=== PATIENT | female | born 1950 | race Caucasian/White ===

== ENCOUNTER → 2016-08-11 | Outpatient (CLI) | payer OTHER ==
[~2016-08-11] MED LIST: ATV5X PO; CITA10TA8 PO; LEVO100T7 PO; MAGN400T6 PO; PRLSR20 PO
[2016-08-11 12:38] LABS: BASO % 0.2 %; BASO ABS # 0.01 K/uL (0-0.2); COMPLETE YES; EOS % 4.9 %; HEMATOCRIT 37.5 % (37-47); IG% 0.2 %; LYMPH % 35.5 %; LYMPH ABS # 1.87 K/uL (1.2-3.4); MEAN CELL VOLUME 96.6 fL (80-100); MEAN CORPUSCULAR HEMOGLOBIN 32.5 pg (25-34); MEAN CORPUSCULAR HGB CONC 33.6 g/dl (32-36); MEAN PLATELET VOLUME 11.8 fL (7.4-10.4); MONO % 8.5 %; NEUT % 50.7 %; PLATELET COUNT 175 K/uL (130-400); RED BLOOD COUNT 3.88 M/uL (4.2-5.4); WHITE BLOOD COUNT 5.27 K/uL (4.8-10.8)
[2016-08-11 12:59] LABS: ESTIMATED AVERAGE GLUCOSE 111 mg/dl; HA1C FLAG Normal (Normal)
[2016-08-11 14:03] LABS: ALT/SGPT 19 U/L (12-78); AST/SGOT 16 U/L (15-37); BLOOD UREA NITROGEN 19 mg/dl (7-18); BUN/CREATININE RATIO 26.7 (10-20); CALCIUM 8.7 mg/dl (8.5-10.1); CARBON DIOXIDE 31 mmol/L (21-32); CHLORIDE 108 mmol/L (98-107); CHOLESTEROL 163 mg/dl (0-200); GLUCOSE 84 mg/dl (70-99); MAGNESIUM 2.1 mg/dl (1.8-2.4); SODIUM 143 mmol/L (136-145)
[2016-08-11 14:11] LABS: ALB/GLOB RATIO 1.2 (0.9-2); ALKALINE PHOSPHATASE 60 U/L (45-117); CHOLESTEROL/HDL RATIO 2.3; FERRITIN 317.7 ng/ml (8.0-388.0); HDL CHOLESTEROL 70 mg/dl; LDL CHOLESTEROL CALCULATED 81 mg/dl; TRIGLYCERIDES 62 mg/dl (0-150); VERY LOW DENSITY LIPOPROT CALC 12 mg/dl
== END | disposition home or self-care (01) ==
LOC: C.LABPBG 08:54
PROVIDERS: ATTEND Nurse Practitioner Family
DX: J45.909 Unspecified asthma, uncomplicated (principal); E03.9 Hypothyroidism, unspecified; Z13.220 Encounter for screening for lipoid disorders; K21.0 Gastro-esophageal reflux disease with esophagitis; R73.9 Hyperglycemia, unspecified

== ENCOUNTER 2021-11-26 10:11 | Observation (INO) ==
--- NOTE | 2021-11-06 16:27 | PAT Medication Instructions ---
Medication Instructions Date of Service November 06, 2021 Home Medications diphenhydramine HCl 25 mg tablet 25 mg PO HS PRN fexofenadine 180 mg tablet 180 mg PO UD PRN allergies albuterol sulfate 90 mcg/actuation aerosol inhaler 1 inh inhalation UD PRN asthma citalopram 20 mg tablet 20 mg PO QPM ipratropium 0.5 mg-albuterol 3 mg (2.5 mg base)/3 mL nebulization soln 3 ml inhalation UD PRN asthma levothyroxine 100 mcg tablet 100 mcg PO QAM montelukast 10 mg tablet (Singulair) 10 mg PO QPM omeprazole 20 mg capsule,delayed release 20 mg PO QAM fluticasone furoate 100 mcg-vilanterol 25 mcg/dose inhalation powder (Breo Ellipta) 1 inh inhalation QAM magnesium oxide 400 mg PO HS DO NOT take the morning of surgery fexofenadine 180 mg tablet 180 mg PO UD PRN allergies Take morning of surgery With a small sip of water, OTHERWISE NOTHING TO EAT OR DRINK AFTER MIDNIGHT: albuterol sulfate 90 mcg/actuation aerosol inhaler 1 inh inhalation UD PRN asthma (use if needed; please bring rescue inhaler with you to hospital day of surgery if possible) ipratropium 0.5 mg-albuterol 3 mg (2.5 mg base)/3 mL nebulization soln 3 ml inhalation UD PRN asthma (if needed) levothyroxine 100 mcg tablet 100 mcg PO QAM omeprazole 20 mg capsule,delayed release 20 mg PO QAM fluticasone furoate 100 mcg-vilanterol 25 mcg/dose inhalation powder (Breo Ellipta) 1 inh inhalation QAM Take evening before surgery diphenhydramine HCl 25 mg tablet 25 mg PO HS PRN (if needed) fexofenadine 180 mg tablet 180 mg PO UD PRN allergies (if needed) albuterol sulfate 90 mcg/actuation aerosol inhaler 1 inh inhalation UD PRN asthma (if needed) citalopram 20 mg tablet 20 mg PO QPM ipratropium 0.5 mg-albuterol 3 mg (2.5 mg base)/3 mL nebulization soln 3 ml inhalation UD PRN asthma (if needed) montelukast 10 mg tablet (Singulair) 10 mg PO QPM magnesium oxide 400 mg PO HS Other Notes If you have any questions please call us at [phone] or [phone] or [phone] or [phone]
--- NOTE | 2021-11-07 13:00 | Anesthesiology Consultation ---
Date of Service November 07, 2021 Assessment & Plan (1) Encounter for pre-operative examination: - COVID screening: Per assessment on 11/06: No known COVID-19 positive contacts or current COVID-19 related symptoms. Travel screen negative. Patient vaccinated. At surgeon discretion if preop Covid testing being done. - Outpatient joint assessment: If surgeon requests review for outpatient joint pathway, patient is acceptable candidate for outpatient joint program from anesthesia standpoint pending surgeon's office assessment of pt motivation/support/completion of same day joint program preop requirements. Chart Review Chart Review: Acceptable Risk for Surgery and Patient seen in Pre Admission Testing Teaching & Discussion Pre-Anesthesia Teaching/Discussion Notes: Instructed NPO after midnight before surgery,except medications with 15 cc of water. Medication instructions provided according to the PAT guidelines. History Surgery Operation Date: 11/26/21 12:55 Proposed Procedures p Left Total Shoulder Arthroplasty - Dae Ding MD Height/Weight Height: 5 ft 6 in Weight: 95.8 kg Allergies Allergy/AdvReac Type Severity Reaction Status Date / Time adhesive tape Allergy Intermediate Rash Verified 11/06/21 08:49 No Known Drug Allergies Allergy Verified 11/06/21 08:49 Medications Home Medications Medication Instructions Recorded Confirmed Last Taken diphenhydramine HCl 25 mg tablet 25 mg PO HS PRN Sleep 02/10/19 11/06/21 Unknown fexofenadine 180 mg tablet 180 mg PO UD PRN allergies #30 tabs 02/10/19 11/06/21 Unknown albuterol sulfate 90 mcg/actuation 1 inh inhalation UD PRN asthma 05/08/21 11/06/21 Unknown aerosol inhaler citalopram 20 mg tablet 20 mg PO QPM 05/08/21 11/06/21 Unknown ipratropium 0.5 mg-albuterol 3 mg 3 ml inhalation UD PRN asthma 05/08/21 11/06/21 Unknown (2.5 mg base)/3 mL nebulization soln levothyroxine 100 mcg tablet 100 mcg PO QAM 05/08/21 11/06/21 Unknown montelukast 10 mg tablet 10 mg PO QPM 05/08/21 11/06/21 Unknown (Singulair) omeprazole 20 mg capsule,delayed 20 mg PO QAM 05/08/21 11/06/21 Unknown release fluticasone furoate 100 1 inh inhalation QAM 11/06/21 11/06/21 Unknown mcg-vilanterol 25 mcg/dose inhalation powder (Breo Ellipta) magnesium oxide 400 mg PO HS 11/06/21 11/06/21 Unknown Past Medical History Medical History Anxiety Asthma Well controlled GERD (gastroesophageal reflux disease) Controlled Hereditary hemochromatosis Follows with Dr. 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 and will be monitoring labs closely pre/post-operatively to determine phlebotomy timing perioperatively per pt Hypothyroidism Memory loss Previous neuro evaluation- Memory loss age-related, advised PRN f/u Obesity Exercise / Class Metabolic Activity II 4-5 Yardwork/Stairs/Walk up hill (one FS (no CP, no SOB)) Past Family History Family History Daughter FHx: ovarian cancer, Onset Age: 43 surgery and treatments - currently in remission Denies family history of Ovarian cancer Prostate cancer Myocardial infarction Breast cancer Colorectal cancer Past Surgical History Surgical History History of appendectomy History of cholecystectomy History of colonoscopy History of endoscopy History of eye surgery Right torn retina History of tubal ligation Hx of bilateral breast reduction surgery Past Anesthesia History No Hx of Anesthesia Complications and No Family Hx of Anesthesia Complications History of PONV No Hx of PONV and No Hx of Motion Sickness Social History Smoking Status: Former smoker tobacco type: cigarettes Do You Dip or Chew Tobacco: No Smoking End Date: Quit 2009 Hx Alcohol Use: Yes Alcohol type: wine alcohol intake frequency: holidays/special occasions only Hx Substance Use: No substance use type: does not use Substance Use Type Other:: Many years ago Last Used Substance: Unknown Review of Systems Patient denies chest pain, shortness of breath, dyspnea on exertion, fever, chills, cough, wheezing, palpitations. Physical Exam Vital Signs VITALS BP 143/78 P 66 TEMP 98.3 SP02 98%RA RESP 18 PHYSICAL Full cervical extension range of motion. Full TMJ range of motion. TMD 3 finger breaths Mallampati Score 2 Dentition: + missing (sides/molars) Lungs: clear throughout to auscultation Cardiac: regular rate and rhythm, no murmurs noted Spine: normal Carotid arteries: negative bruit Extremities: no edema Lab Results Anesthesia Preop Results Results Anesthesia Widget: WBC 5.77 K/ul (4.8-10.8) 11/07/21 Hgb 10.8 g/dl (12.0-16.0) L 11/07/21 Hct 32.7 % (34.1-44.9) L 11/07/21 Plt 196 K/uL (130-400) 11/07/21 Na 141 mmol/L (136-145) 11/07/21 K 4.1 mmol/L (3.5-5.1) 11/07/21 Cl 108 mmol/L (98-107) H 11/07/21 CO2 26 mmol/L (21-32) 11/07/21 BUN 16 mg/dl (6-23) 11/07/21 Creat 0.78 mg/dl (0.6-1.2) 11/07/21 Glucose Level 89 mg/dl (70-99(Fasting)) 11/07/21 PT 10.5 Seconds (9.0-12.0) 11/07/21 PTT 25.6 Seconds (21.0-31.0) 11/07/21 INR 1.0 (0.9-1.1) 11/07/21 HA1c 5.1 % (4.5-5.6) 11/07/21 Urine Color Yellow 11/07/21 Urine Appearance Clear (Clear) 11/07/21 Urine pH 5.5 (4.5-7.5) 11/07/21 Urine Specific [place] 1.013 (1.000-1.030) 11/07/21 Urine Protein Negative (Negative) 11/07/21 Urine Glucose (UA) Negative (Negative) 11/07/21 Urine Ketones Negative (Negative) 11/07/21 Urine Blood 2+ (Negative) H 11/07/21 Urine Nitrite Negative (Negative) 11/07/21 Urine Bilirubin Negative (Negative) 11/07/21 Urine Urobilinogen Negative (Negative) 11/07/21 Urine Leukocyte Esterase Negative (Negative) 11/07/21 Urine WBC (Auto) 1-5 /hpf (0-5) 11/07/21 Urine RBC (Auto) 5-10 /hpf (0-4) H 11/07/21 Urine Hyaline Casts (Auto) 1-5 /lpf (0-5) 11/07/21 Urine Epithelial Cells (Auto) 20-30 /lpf (0-5) H 11/07/21 Urine Bacteria (Auto) Negative (Negative) 11/07/21 Blood Type A Positive 11/07/21 Antibody Screen NEGATIVE 11/07/21 Testing Laboratory Results Will forward preop testing to PCP/office agent for continuity of care* Electrocardiogram Date: 11/07/21 Findings: + NSR @ (62) Chest X-Ray Date: 11/07/21 FINDINGS: No pneumothorax. No pleural effusions. The heart is normal in size. The lungs are clear. Mild calcified plaque within the aortic knob again noted. Advanced degenerative changes within the left shoulder. Prior cholecystectomy. IMPRESSION: No acute process.
--- NOTE | 2021-11-25 18:08 | History & Physical Report ---
Date of Service November 25, 2021 Assessment & Plan (1) Primary osteoarthritis, left shoulder: Plan: Treatment options discussed with patient. She has failed conservative measures and would like to proceed with surgical intervention Risks, benefits and alternatives to surgery including but not limited to infection, DVT, pain, stiffness, need for revision surgery, damage to blood vessels, damage to nerves, PE, , were discussed with the patient and they wish to proceed. Plan on left total shoulder arthroplasty scheduled for 11/26/[address] Ding. All questions answered. She will follow up post op. History of Present Illness Chief Complaint: Left shoulder pain Primary Care Provider: NO PCP 71yo female with PMHx significant for hemochromatosis, asthma, hypothyroid who presents with progressive left shoulder pain. Pain interfering with her daily activity. She has failed conservative measures and would like to proceed with surgical intervention. Patient denies headaches, sweats, fevers, chills, double vision, blurred vision, cough, sore throat, dysphagia, chest pain, sob, wheezing, n/v/d/c, numbness, tingling, fatigue, urinary symptoms, mood disorders. ROS positive for left shoulder pain and stiffness. Allergies Allergy/AdvReac Type Severity Reaction Status Date / Time adhesive tape Allergy Intermediate Rash Verified 11/06/21 08:49 No Known Drug Allergies Allergy Verified 11/06/21 08:49 Home Medications Medication Instructions Recorded Confirmed Type diphenhydramine HCl 25 mg tablet 25 mg PO HS PRN Sleep 02/10/19 11/06/21 History fexofenadine 180 mg tablet 180 mg PO UD PRN allergies #30 tabs 02/10/19 11/06/21 History albuterol sulfate 90 mcg/actuation 1 inh inhalation UD PRN asthma 05/08/21 11/06/21 History aerosol inhaler citalopram 20 mg tablet 20 mg PO QPM 05/08/21 11/06/21 History ipratropium 0.5 mg-albuterol 3 mg 3 ml inhalation UD PRN asthma 05/08/21 11/06/21 History (2.5 mg base)/3 mL nebulization soln levothyroxine 100 mcg tablet 100 mcg PO QAM 05/08/21 11/06/21 History montelukast 10 mg tablet 10 mg PO QPM 05/08/21 11/06/21 History (Singulair) omeprazole 20 mg capsule,delayed 20 mg PO QAM 05/08/21 11/06/21 History release fluticasone furoate 100 1 inh inhalation QAM 11/06/21 11/06/21 History mcg-vilanterol 25 mcg/dose inhalation powder (Breo Ellipta) magnesium oxide 400 mg PO HS 11/06/21 11/06/21 History Past Med/Surg History Medical History Anxiety Asthma Well controlled GERD (gastroesophageal reflux disease) Controlled Hereditary hemochromatosis Follows with Dr. Tavares ([facility]), received phlebotomy typically every other week Division Superintendent aware of upcoming surgery and will be monitoring labs closely pre/post-operatively to determine phlebotomy timing perioperatively per pt Hypothyroidism Memory loss Previous neuro evaluation- Memory loss age-related, advised PRN f/u Obesity Surgical History History of appendectomy History of cholecystectomy History of colonoscopy History of endoscopy History of eye surgery Right torn retina History of tubal ligation Hx of bilateral breast reduction surgery Family History Daughter FHx: ovarian cancer, Onset Age: 43 surgery and treatments - currently in remission Denies family history of Ovarian cancer Prostate cancer Myocardial infarction Breast cancer Colorectal cancer Social History Smoking Status: Former smoker Age Started Using Tobacco: 17; Age Quit Using Tobacco: 53; Second Hand Exposure: No; Hx Alcohol Use: Yes Alcohol type: wine Hx Substance Use: No Preferred Language: Hong Konger Communication Ability: Effective Reversing Mill Roller Required: No Beliefs That Will Affect Care: None marital status: Current Living Situation: Other 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 Feels Safe at Home: Yes Childhood Exposure to Second-Hand Smoke: Yes Dental Care, Regularly: Yes Physical Activity Frequency: 1-2 Times per Week Seatbelt Use: always Sunscreen Use: Yes Assistive Devices: None Review of Systems All systems reviewed & are unremarkable except as noted in HPI & below Physical Exam Constitutional: well developed and well nourished; no acute distress Eyes: PERRL, conjunctivae normal, anicteric sclerae ENMT: external ear and nose normal, oropharynx normal Neck: trachea midline, no thyromegaly Respiratory: normal respiratory effort, lungs clear to auscultation Cardiovascular: RRR, no murmur, no edema Musculoskeletal: Left shoulder: crepitation with ROM. Diffuse tenderness. Pos itive impingement signs, positive cross body and lift off. Abduction to 90 degrees, FF to 90 degrees, ER to 30 degrees. Pain with strength testing. Skin: no rashes, warm and dry Neurologic: patellar DTR's 2+ bilat, sensation intact Psychiatric: A+Ox3, euthymic affect Results & Data ([facility]) Diagnostic Findings Left shoulder radiographs demonstrate endstage osteoarthritis GH joint with joint space narrowing and periarticular osteophyte formation. MRI demonstrates no full thickness rotator cuff tearing.
[~2021-11-26 10:11] MED LIST changes: +ACETAMINOPHEN 500 MG TAB PO SCH; -ATV5X PO; +BUPIVACAINE 0.5 % 5 MG/1 ML PF 10ML VIAL ONE; -CITA10TA8 PO; +CeleBREX 200 MG CAP PO SCH; +FAMOTIDINE 20 MG TAB PO SCH; +GABAPENTIN 300 MG CAP PO SCH; -LEVO100T7 PO; +LR 15ML/HR IV SCH; -MAGN400T6 PO; +METOCLOPRAMIDE HCL 10 MG TABLET PO SCH; -PRLSR20 PO; +TRANEXAMIC ACID 1,000 MG **IV Intra-op IV SCH; +TRANEXAMIC ACID 1,000 MG **IV Pre-op IV SCH; +ceFAZolin 2000MG 2,000 MG/15 ML SYR IV SCH; +dexAMETHasone 4 MG TAB PO SCH
[2021-11-26] MEDS ORDERED: ePHEDrine sulfate 50 MG/ML AMP IV PRN (13:17)
[2021-11-26] MEDS ORDERED: ATROPINE SULFATE 0.1 MG/ML 10ML SYR IV PRN (13:17)
[2021-11-26] MEDS ORDERED: LABETALOL HCL IV 5 MG/ML 20ML IV PRN (13:17)
[2021-11-26] MEDS ORDERED: fentaNYL citrate 100 MCG/2 ML VIAL IV PRN (13:17)
[2021-11-26] MEDS ORDERED: PROMETHAZINE HCL 12.5 MG in SODIUM CHLORIDE 0.9% 50 ML IV PRN (13:17)
[2021-11-26] MEDS ORDERED: HYDROmorphone INJ 1 MG/ML SYRINGE IV PRN (13:17)
[2021-11-26] MEDS ORDERED: FLUMAZENIL 0.1 MG/1 ML 10 ML VIAL IV PRN (13:17)
[2021-11-26] MEDS ORDERED: NALOXONE HCL 0.4 MG/1 ML VIAL/CARP IV PRN ×2 (13:17→19:36)
[2021-11-26] MEDS ORDERED: ONDANSETRON INJ 2 MG/ML 2 ML VIAL IV PRN ×2 (13:17→19:36)
[2021-11-26] MEDS ORDERED: DEXAMETHASONE SOD INJ 4 MG/ML VIAL ONE (14:49)
[2021-11-26] MEDS ORDERED: ONDANSETRON INJ 2 MG/ML 2 ML VIAL ONE (14:49)
[2021-11-26] MEDS ORDERED: NEOSTIGMINE METHYLSULFATE 1 MG/ML 10ML VIAL ONE (14:49)
[2021-11-26] MEDS ORDERED: PROPOFOL IV EMULSION 10 MG/ML 20 ML VIAL IV ONE (14:49)
[2021-11-26] MEDS ORDERED: GLYCOPYRROLATE 0.2 MG/ML VIAL ONE (14:49)
[2021-11-26] MEDS ORDERED: fentaNYL citrate 100 MCG/2 ML VIAL ONE (14:50)
[2021-11-26] MEDS ORDERED: MIDAZOLAM HCL 1 MG/ML 2ML VIAL ONE (14:50)
--- NOTE | 2021-11-26 15:24 | History & Physical Bridge Note ---
Date of Service November 26, 2021 History & Physical Bridge Note I have examined the patient, reviewed the History & Physical and in the interval since the performance of the History & Physical I have noted the following changes of clinical significance: no changes noted
[2021-11-26] MEDS ORDERED: EpINEphrine HCL INJ 1 MG/ML 1ML SYRINGE ONE (15:32)
[2021-11-26] MEDS ORDERED: LIDOCAINE 2% MPF LOCAL 5 ML VIAL INFIL ONE (16:48)
[2021-11-26] MEDS ORDERED: ROCURONIUM BROMIDE 10 MG/ML 5 ML VIAL IV ONE ×3 (16:48→17:49)
--- NOTE | 2021-11-26 18:38 | Operative Report ---
Post Operative Report Pre & Post Diagnosis Operation Date: 11/26/21 12:40 Pre-Op Diagnosis: Left Shoulder end-stage glenohumeral osteoarthritis, severe biceps tenosynovitis, large anterior bursal fluid collection underlying conjoined tendon and subcoracoid region. Post-Op Diagnosis: Left Shoulder end-stage glenohumeral osteoarthritis, biceps tendinopathy with biceps tenosynovitis severe, large bursal fluid collection underlying conjoined tendon and subcoracoid region. I identified the patient and participated in the time-out.: Yes Procedure Operation Date: 11/26/21 12:40 Actual Procedures p Left Total Shoulder Arthroplasty(Left), biceps tenosynovectomy and biceps tenodesis, resection subcoracoid and sub conjoined tendon bursa.Dae Ding MD Surgeon Dae Ding MD Netsuite Developer Esau PERDOMO Estimated Blood Loss 125 Findings Consistent with Post-Op Diagnosis Specimens Humeral head cut Drains 2 Hemovac Anesthesia Type General Regional Complications None Disposition Disposition: Recovery Room Indications 71-year-old female with chronic left shoulder pain failed conservative management. Radiographs demonstrate she has end-stage glenohumeral osteoarthritis [id number] glenohumeral joint. MRI demonstrates a large anterior fluid collection overlying the subscapularis tendon extending under lying the conjoined tendon and subcoracoid region. Also extensive biceps tenosynovitis. Description of Procedure The patient was taken to the operating room and anesthetized under a general and regional block anesthesia. A towel roll was placed under the medial border of the scapula of the left shoulder. The patient's head was placed on a foam headrest and protective eyewear was placed and the extremities were well padded. The arm was draped free in order to manipulate the shoulder as necessary. The shoulder exam demonstrated 100 degrees flexion 90 degrees abduction 30 degrees e xternal rotation with [id number] crepitation. The shoulder was sterilely prepped and draped in the usual sterile fashion. An anterior deltopectoral approach was performed. A longitudinal incision was made in the interval. The skin was incised sharply and subcutaneous tissues dissected down to the fascia. The cephalic vein was identified and retracted laterally with the deltoid. Any crossing veins were tied off with silk ties and divided. The clavipectoral fascia was divided at the lateral margin of the conjoined tendon and divided up to the level of the coracoacromial ligament which was preserved. The upper 1 cm of the pectoralis was released for inferior exposure. The biceps tendon findings demonstrated very marked biceps sepsis tenosynovitis along the entire bicipital groove and extending below the pectoralis tendon attachment with dark discoloration of fluid likely related to old bleeding. There was a similar very large bursal type sac over the anterior medial subscapularis tendon which extended into the subcoracoid region and underlying the conjoined tendon. The subscapularis tendon was completely intact as well as the remainder of the rotator cuff. The circumflex vessels were identified and tied off with silk ties and divided laterally. The upper centimeter of the pectoralis was released for inferior exposure. The fibers and subscapularis were split longitudinally at the level of the circumflex vessels down to the capsule and then reflected off the inferior capsule using a Kitner elevator. The axillary nerve was identified with a tug test and protected with a blunt Eric retractor. The rotator interval was opened up and extended down to the glenoid. The biceps tendon was identified and tenodesed to the pectoralis tendon with [id number] #2 Fib erWire sutures in the proximal biceps was resected. The subscapularis tendon was taken down with a trans-tendinous incision leaving a cuff of tissue for repair on the lesser tuberosity. The incision was carried down to the tendon and the capsule and a #1 Vicryl suture was placed into the free end of the subscapularis tendon. The capsule was subperiosteally dissected off the inferior neck of the humerus exposing the humeral osteophytes which demonstrated moderately large inferior humeral osteophytes.. The osteophytes were excised with an artist chisel and a rongeur. The capsular release along the inferior neck of the humerus was completed. The humerus was then retracted posterior to the glenoid with a Fukuda retractor. The remainder of the biceps tendon and labrum was resected. The glenoid findings demonstrated type a central wear with exposed bone with multiple cysts on the surface extending into the subchondral subcortical region. The cysts are relatively superficial 2 to 3 mm deep. I did an anterior inferior and posterior inferior release with electrocautery on bone and a Madrid elevator with the axillary nerve continuing to be protected with the blunt Hohmann retractor inferiorly. When the releases were completed and the humeral head was exposed with some extension and external rotation and in anatomic head cut was made using the oscillating saw. The Tornier total shoulder arthroplasty was used including the Cortiloc pegged glenoid component and the ascend flex stem. Attention was first taken to preparation of the humeral shaft. A centralizing awl was used followed by broaches up to the appropriate templated size. The trial broach size 5 standard was left in place and a cut protector was placed. The humerus was then retracted posterior to the glenoid using a Bankart retractor anteriorly and blunt Eric and posterior Tornier glenoid retractor. A central drill hole was made into the glenoid. The glenoid was sized for a size 30 radius pegged Cortiloc medium glenoid component. The glenoid was reamed and the central drill widened and the guide for the 3 peripheral peg holes was placed in the peg holes were drilled and a trial component was placed with a tight fit. All the cysts were curetted out to expose bone removing all the cyst material using a small curette. Rongeur was also used to debride the soft tissue. The glenoid was irrigated with pulsatile lavage antibiotic solution and the drill holes and cysts were dried and packed with epinephrine-soaked tampons for hemostasis. The Palacos G cement was vacuum mixed. The final component was cemented into position and held in position with pressure until the cement cured. A humeral head trial was placed. A trial reduction was performed and the shoulder was stable. The trial was removed and the humerus and canal were irrigated with antibiotic solution with bacitracin. 3 drill holes were made into the hard bone in the bicipital groove lateral to the lesser tuberosity and 3 #5 FiberWire transosseous sutures were placed for repair of the subscapularis. After further irrigation of the canal and the final components were assembled. The final components were the 48 x 18 mm hu meral head attached to the 5 A standard ascend flex PTC humeral stem. The implant was then impacted into the humerus with a tight press-fit. The humerus was reduced to the glenoid and stability verified. The subscapularis was repaired with the #5 FiberWire sutures in a Sunil-Brigido suture technique and lateral row fixation with [id number] #2 FiberWire in the soft tissue. The rotator interval was closed and maximal external rotation. The pectoralis was then closed with [id number] #2 FiberWire suture. The sutures were passed through the biceps tendon as well to reinforce the biceps tenodesis. 2 Hemovac drains were placed. The deltopectoral interval was closed with [id number] #1 Vicryl sutures. The subcutaneous tissues were closed with interrupted 2-0 Vicryl and the skin was closed with krysten and a sterile dressing was applied. The patient tolerated the procedure well. Esau PERDOMO my physician clinical laboratory assistant, participated as patient clerical assistant and was integral part in all aspects of the operative procedure. He assisted in soft tissue retraction instrument management suture management and assisted in the subcutaneous and skin closure and will participate in the postoperative care the patient. I attest to the content of the Intraoperative Record and any orders documented therein. Any exceptions are noted below.
--- NOTE | 2021-11-26 19:18 | Anesthesiology Progress Note ---
Date of Service November 26, 2021 Anesthesia Post Procedure Vital Signs Vital Signs: Temp Pulse Pulse Resp BP Pulse Ox O2 Del Method 11/26/21 19:05 75 16 147/71 H 95 Nasal Cannula 11/26/21 18:55 78 20 139/79 92 Room Air 11/26/21 18:45 75 18 110/75 97 Oxymask 11/26/21 18:38 36.7 C 88 16 137/101 H 98 Oxymask 11/26/21 10:34 36.5 C 62 18 132/83 96 Room Air O2 Flow Rate 11/26/21 19:05 2 11/26/21 18:55 11/26/21 18:45 9 11/26/21 18:38 9 11/26/21 10:34 Pain Intensity Left Shoulder: Pain Intensity: 5 Transfer of Care Handoff Completed per policy Notes Mental Status: alert / awake / arousable Patient Amnestic to Procedure: Yes Nausea / Vomiting: adequately controlled Pain: adequately controlled Airway Patency, RR, SpO2: stable & adequate BP & HR: stable & adequate Hydration State: stable & adequate Anesthetic Complications: no major complications apparent
[2021-11-26] MEDS ORDERED: oxyCODONE HCL IR 5 MG TAB (IMMEDIATE RELEASE) PO PRN (19:36)
[2021-11-26] MEDS ORDERED: HYDROmorphone INJ 0.5 MG/0.5 ML SYR IV PRN (19:36)
[2021-11-26] MEDS ORDERED: METOCLOPRAMIDE HCL INJ 5 MG/ML 2 ML VIAL IV PRN (19:36)
[2021-11-26] MEDS ORDERED: MAGNESIUM HYDROXIDE SUSP 30 ML UDC PO PRN (19:36)
[2021-11-26] MEDS ORDERED: ALBUT/IPRATROP 3MG/0.5MG NEB 3 ML VIAL INH PRN ×2 (19:36→19:52)
[2021-11-26] MEDS ORDERED: ALBUTEROL HFA 8 GM INHALER INH PRN ×2 (19:36→19:52)
[2021-11-26] MEDS ORDERED: FEXOFENADINE HCL 180 MG TAB PO PRN (19:36)
[2021-11-26] MEDS ORDERED: bisacodyL 10 MG SUPP PR PRN (19:36)
--- NOTE | 2021-11-26 19:53 | Hospitalist Consultation ---
Date of Consultation November 26, 2021 Assessment & Plan (1) S/P shoulder surgery: POD #0 from arthroplasty with hemovac in place - Pain control tiered appropriate with rescue narcan as you have - drains per primary team - VTE prophy per primary team - SCDS, ASA - ABX per primary team - Diet per primary team - PT/OT per primary team - Blood transfusions per primary team - IVF per primary team (2) GERD (gastroesophageal reflux disease): Continue PPI as you have (3) Asthma: Well controlled - continue ROSANNA as you have with ROSANNA nebs prn as you have - Continue ICS/LABA as you have - Continue Montelukast - continue Anna Marie (4) Hypothyroidism: Continue synthroid as you have (5) Hereditary hemochromatosis: Follows with [facility] in [facility] - managed with phlebotomy Plan Hospitalist will sign off at this time, please let us know if clinical course changes or further needs arise. Supervising Physician Co-Signing Physician Notes Patient seen and examined, chart reviewed, case discussed with LYNDA Gallo and I agree with the assessment and plan as above. In brief, patient is a 8-year-old female with history of asthma, GERD, hereditary hemochromatosis and hypothyroidism. She is status post left shoulder arthroplasty performed today by Dr. Ding. Surgery was well-tolerated with no immediate complications identified. Estimated blood loss = 125 mL. Patient presently awake and alert, resting comfortably. Denies pain, nausea. On physical exam she is afebrile, hemodynamically stable, resting comfortably Left arm in sling with Hemovac drain in place HEENTnormocephalic, atraumatic, pupils equal and reactant to light, moist mucous membranes Heart+ S1, S2, regular, no murmur/rub/gallops LungsCTA anteriorly, no rales/rhonchi/wheezes Abdomenpositive bowel sounds, soft, nontender, nondistended Extremitieswarm, well perfused with no clubbing, cyanosis or edema No recent labs performed. COVID test is negative Assessment/plan: 71-year-old female with history of well-controlled asthma, GERD, hereditary hemochromatosis and hypothyroidism postop day 0 from left total shoulder arthroplasty. Patient overall doing well. Management of pain, nausea, PT/OT discharge planning per primary team Resume home medicationsomeprazole, Singulair, Synthroid, ipra tropiumalbuterol, Breo Ellipta Remainder as above History of Present Illness Reason for Consultation: medical managment Requesting Physician: Dae Ding MD Attending Physician: Dae Ding MD History of Present Illness 71 YOF POD #0 from left total shoulder arthroplasty by Dr. Ding, under [place] with intubation and EBL of 125ml, she required some ephedrine during the case. Patient with medical history of: Hemochromatosis, VIT D deficiency, GERD, Hypothyroidism, Asthma, previous smoker. Patient was evaluated in her room postoperatively. She is briskly awake, pain controlled, no nausea/vomiting, all vitals with in normal range and her oxygen on 2L is being weaned down. She remains with Hemovac drain to left shoulder and arm is sling. Still with some effects of block to shoulder on board. Medications reviewed, is with rescue narcan and bowel regimen. Continue Asthma inhalers as you have with nebulizer as needed as you have. No recommendations Hospitalist service will sign off at this time, pleas let us know if clinical course changes or other needs arise. Thank you for allowing us to participate in the care of this patient. Allergies Allergy/AdvReac Type Severity Reaction Status Date / Time adhesive tape Allergy Intermediate Rash Verified 11/26/21 10:32 No Known Drug Allergies Allergy Verified 11/26/21 10:32 Home Medications Medication Instructions Recorded Confirmed Type diphenhydramine HCl 25 mg tablet 25 mg PO HS PRN Sleep 02/10/19 11/26/21 History fexofenadine 180 mg tablet 180 mg PO UD PRN allergies #30 tabs 02/10/19 11/26/21 History albuterol sulfate 90 mcg/actuation 1 inh inhalation UD PRN asthma 05/08/21 11/26/21 History aerosol inhaler citalopram 20 mg tablet 20 mg PO QPM 05/08/21 11/26/21 History ipratropium 0.5 mg-albuterol 3 mg 3 ml inhalation UD PRN asthma 05/08/21 11/26/21 History (2.5 mg base)/3 mL nebulization soln levothyroxine 100 mcg tablet 100 mcg PO QAM 05/08/21 11/26/21 History montelukast 10 mg tablet 10 mg PO QPM 05/08/21 11/26/21 History (Singulair) omeprazole 20 mg capsule,delayed 20 mg PO QAM 05/08/21 11/26/21 History release fluticasone furoate 100 1 inh inhalation QAM 11/06/21 11/26/21 History mcg-vilanterol 25 mcg/dose inhalation powder (Breo Ellipta) magnesium oxide 400 mg PO HS 11/06/21 11/26/21 History Patient History Medical History (Updated 11/26/21 @ 20:26 by LYNDA Ferreira) Anxiety Asthma Well controlled GERD (gastroesophageal reflux disease) Controlled Hereditary hemochromatosis Follows with Dr. Tavares ([facility]), received phlebotomy typically every other week Client Delivery Specialist aware of upcoming surgery and will be monitoring labs closely pre/post-operatively to determine phlebotomy timing perioperatively per pt Hypothyroidism Memory loss Previous neuro evaluation- Memory loss age-related, advised PRN f/u Obesity Surgical History (Updated 11/26/21 @ 20:26 by LYNDA Ferreira) History of appendectomy History of cholecystectomy History of colonoscopy History of endoscopy History of eye surgery Right torn retina History of tubal ligation Hx of bilateral breast reduction surgery Family History Daughter FHx: ovarian cancer, Onset Age: 43 surgery and treatments - currently in remission Denies family history of Ovarian cancer Prostate cancer Myocardial infarction Breast cancer Colorectal cancer Social History Smoking Status: Former smoker Age Started Using Tobacco: 17; Age Quit Using Tobacco: 53; Smoking End Date: Quit 2009; Second Hand Exposure: No; Do You Dip or Chew Tobacco: No; Tobacco Cessation Education Requested by Patient: No Hx Alcohol Use: Yes Alcohol type: wine Hx Substance Use: No Preferred Language: Italian Communication Ability: Effective Systems Consultant Required: No Beliefs That Will Affect Care: None marital status: Current Living Situation: Other Current Living Situation Comment: lives with room mate current occupational status: retired Other Information That Helps Us Care for You: No Feels Safe at Home: Yes Safety Concerns: Feels Safe At This Time Childhood Exposure to Second-Hand Smoke: Yes Dental Care, Regularly: Yes Physical Activity Frequency: 1-2 Times per Week Seatbelt Use: always Sunscreen Use: Yes Assistive Devices: None Review of Systems Review of Systems: REVIEW OF SYSTEMS: Constitutional: No fever, sweats or chills Eyes: No diplopia, no worsening or blurred vision ENT: normal hearing, no trouble swallowing Respiratory: (+) asthma, previous smoker, No cough, sputum, dyspnea at rest or on exertion Cardiovascular: No chest pain, tightness or palpitations Abdomen: No pain, nausea, vomiting, diarrhea or constipation Musculoskeletal: (+) left shoulder pain, no other joint pain, calf pain, swelling Neurologic: No weakness, numbness/tingling, or balance problems Psychiatric: No anxiety or depression Skin: No rash or itch Physical Exam Physical Exam: PHYSICAL EXAM: General: awake, alert, no apparent distress Head: Normocephalic, atraumatic ENT: PERRL, EOMI, no pharyngeal exudate, mucous membranes moist Neuro: AAO x 3, speech clear and appropriate, strength intact bilaterally 5/5, sensation intact and equal all extremities and dermatomes, no pronator drift Chest: equal rise and fall of the chest, no accessory muscle use, no heaves or thrills, Clear to auscultation no wheeze, on 2LNC Cardiac: Regular rate and rhythm,S1S2, skin warm dry, cap refill <3 seconds, peripheral pulses +2 no JVD, no murmur, no edema GI: NABS x 4 quadrants, soft, nontender to palpation, no rebound, guarding or tenderness : Spontaneously voiding, no pain, no CVA tenderness, Extremities: Normal inspection, no peripheral edema or erythema, calfs nontender to palpation Psych: Normal mood and affect Skin: no rash or erythema Results & Data Results & Data ([facility]) Vital Signs (Past 12 Hours) Vital Signs Temp Pulse Pulse Resp BP Pulse Ox O2 Del Method 11/26/21 19:15 36.5 C 68 19 127/68 95 Nasal Cannula 11/26/21 19:05 75 16 147/71 H 95 Nasal Cannula 11/26/21 18:55 78 20 139/79 92 Room Air 11/26/21 18:45 75 18 110/75 97 Oxymask 11/26/21 18:38 36.7 C 88 16 137/101 H 98 Oxymask 11/26/21 10:34 36.5 C 62 18 132/83 96 Room Air O2 Flow Rate 11/26/21 19:15 2 11/26/21 19:05 2 11/26/21 18:55 11/26/21 18:45 9 11/26/21 18:38 9 11/26/21 10:34 Laboratory Results none Diagnostic Findings none Medications Administered Home Medications diphenhydramine HCl 25 mg tablet 25 mg PO HS PRN Sleep 02/10/19 [History Confirmed 11/26/21] fexofenadine 180 mg tablet 180 mg PO UD PRN allergies #30 tabs 02/10/19 [History Confirmed 11/26/21] albuterol sulfate 90 mcg/actuation aerosol inhaler 1 inh inhalation UD PRN asthma 05/08/21 [History Confirmed 11/26/21] citalopram 20 mg tablet 20 mg PO QPM 05/08/21 [History Confirmed 11/26/21] ipratropium 0.5 mg-albuterol 3 mg (2.5 mg base)/3 mL nebulization soln 3 ml inhalation UD PRN asthma 05/08/21 [History Confirmed 11/26/21] levothyroxine 100 mcg tablet 100 mcg PO QAM 05/08/21 [History Confirmed ] montelukast 10 mg tablet (Singulair) 10 mg PO QPM 05/08/21 [History Confirmed 11/26/21] omeprazole 20 mg capsule,delayed release 20 mg PO QAM 05/08/21 [History Confirmed 11/26/21] fluticasone furoate 100 mcg-vilanterol 25 mcg/dose inhalation powder (Breo Ellipta) 1 inh inhalation QAM 11/06/21 [History Confirmed 11/26/21] magnesium oxide 400 mg PO HS 11/06/21 [History Confirmed 11/26/21] Active Medications Acetaminophen (Acetaminophen 500 Mg Tab) 1,000 mg PO Q8 KETTY Stop: 12/26/21 21:59 Albuterol (Albut/Ipratrop 3mg/0.5mg Neb 3 Ml Vial) 3 ml INH Q6 PRN; Protocol PRN Reason: asthma Stop: 12/26/21 19:35 Albuterol (Albuterol Hfa 8 Gm Inhaler) 1 puffs INH Q6 PRN PRN Reason: wheeze, dyspnea not relieved Stop: 12/26/21 19:35 Aspirin (Aspirin 81 Mg Ectab) 81 mg PO BID [facility] Stop: 12/27/21 08:59 Bisacodyl (Bisacodyl 10 Mg Supp) 10 mg NH DAILY PRN PRN Reason: Constipation Stop: 12/26/21 19:35 Citalopram Hydrobromide (Citalopram 20 Mg Tab) 20 mg PO QPM KETTY Stop: 12/26/21 20:59 Diphenhydramine HCl (Diphenhydramine Capsule 25 Mg Cap) 25 mg PO HS PRN PRN Reason: Sleep Stop: 12/26/21 20:11 Docusate Sodium (Docusate Sodium 100 Mg Cap) 100 mg PO BID KETTY Stop: 12/26/21 20:59 Fexofenadine HCl (Fexofenadine Hcl 180 Mg Tab) 180 mg PO DAILY PRN PRN Reason: allergies Stop: 12/26/21 19:35 Fluticasone/Vilanterol (Fluticasone/Vilanterol 100/25mcg 14 Puffs/Inhaler) 1 puffs INH QAM KETTY Stop: 12/27/21 08:59 Hydromorphone HCl (Hydromorphone Inj 0.5 Mg/0.5 Ml Syr) 0.5 mg IV Q4H PRN PRN Reason: Pain or Pre PT Stop: 12/10/21 19:35 Sodium Chloride (Nss 1000ml) 1,000 mls @ 100 mls/hr IV .Q10H KETTY Stop: 11/27/21 06:00 Cefazolin Sodium (Ancef 2000mg) 2,000 mg in 15 mls @ 3.75 mls/min IV Q8H KETTY; Protocol Stop: 11/27/21 08:48 Levothyroxine Sodium (Levothyroxine Sodium 100 Mcg Tablet) 100 mcg PO DAILYBB KETTY Stop: 12/27/21 06:29 Magnesium Hydroxide (Magnesium Hydroxide Susp 30 Ml Udc) 30 ml PO Q6H PRN PRN Reason: Constipation Stop: 12/26/21 19:35 Magnesium Oxide (Magnesium Oxide 400 Mg Tab) 400 mg PO HS KETTY Stop: 12/26/21 20:59 Metoclopramide HCl (Metoclopramide Hcl Inj 5 Mg/Ml 2 Ml Vial) 10 mg IV Q6H PRN PRN Reason: Nausea And Vomiting Stop: 12/26/21 19:35 Montelukast Sodium (Montelukast Sodium 10 Mg Tablet) 10 mg PO QPM KETTY Stop: 12/26/21 20:59 Multivitamins (Multivitamin Tab) 1 tab PO QAM KETTY Stop: 12/27/21 08:59 Naloxone HCl (Naloxone Hcl 0.4 Mg/1 Ml Vial/Carp) 0.1 mg IV Q5M PRN PRN Reason: Oversedation/Resp Depression Stop: 12/26/21 19:35 Ondansetron HCl (Ondansetron Inj 2 Mg/Ml 2 Ml Vial) 4 mg IV Q6H PRN PRN Reason: Nausea And Vomiting Stop: 12/26/21 19:35 Oxycodone HCl (Oxycodone Hcl Ir 5 Mg Tab (Immediate Release)) 5 - 10 mg PO Q4H PRN PRN Reason: Pain or Pre PT Stop: 12/10/21 19:35 Pantoprazole Sodium (Pantoprazole 40 Mg Tab) 40 mg PO QAM KETTY Stop: 12/27/21 08:59 Sennosides (Senna 8.6 Mg Tab) 17.2 mg PO HS KETTY Stop: 12/26/21 20:59 PG Care Time/CCT Total # of Minutes Spent Total Time Spent with Patient: Total time spent is greater than 50% in coordination of care (as documented) at patient's floor/unit and/or counseling patient: Coding Level of Care Code 67322 Office/OBS Consult Lvl 2 Diagnoses S/P shoulder surgery Z98.890 GERD (gastroesophageal reflux disease) K21.9 Asthma J45.909 Hypothyroidism E03.9 Hereditary hemochromatosis E83.110
[2021-11-26] MEDS ORDERED: diphenhydrAMINE Capsule 25 MG CAP PO PRN (20:12)
[2021-11-26] MEDS: SODIUM CHLORIDE 0.9% 1000ML 1,000 ML IV SCH (20:32)
--- NOTE | 2021-11-26 20:35 | XRay Report ---
LEFT SHOULDER 2 VIEWS CLINICAL HISTORY: Postoperative examination. FINDINGS: 2 portable views of the left shoulder are obtained. The skeletal structures are osteopenic. A left shoulder arthroplasty is in near anatomic alignment. No acute fracture is seen. Skin clips, s oft tissue swelling, subcutaneous gas, and a surgical drain overlying the left shoulder are expected postoperative findings. Imaged left lung parenchyma appears clear. IMPRESSION: Expected postoperative findings status post left shoulder otherwise. No fracture is seen. Electronically signed by: Femi Miller M.D. 11/26/2021 8:34 PM
[2021-11-26] MEDS ORDERED: SENNA 8.6 MG TAB PO SCH (21:00)
[2021-11-26] MEDS ORDERED: CITALOPRAM 20 MG TAB PO SCH (21:00)
[2021-11-26] MEDS ORDERED: MAGNESIUM OXIDE 400 MG TAB PO SCH (21:00)
[2021-11-26] MEDS ORDERED: MONTELUKAST SODIUM 10 MG TABLET PO SCH (21:00)
[2021-11-26] MEDS: ACETAMINOPHEN 500 MG TAB PO SCH (21:23)
[2021-11-26] MEDS: DOCUSATE SODIUM 100 MG CAP PO SCH (21:23)
[2021-11-27] MEDS: ceFAZolin 2000MG 2,000 MG/15 ML SYR IV SCH ×2 (00:04→09:07)
[2021-11-27] MEDS ORDERED: LEVOTHYROXINE SODIUM 100 MCG TABLET PO SCH (06:30)
[2021-11-27] MEDS: SODIUM CHLORIDE 0.9% 1000ML 1,000 ML IV SCH (06:37)
[2021-11-27] MEDS: ACETAMINOPHEN 500 MG TAB PO SCH ×2 (06:38→13:54)
[2021-11-27 08:10] LABS: Basophils # (auto) 0.02 K/uL (0-0.2); Basophils % (auto) 0.2 %; Eosinophils # (auto) 0.01 K/uL (0-0.50); Eosinophils % (auto) 0.1 %; Hematocrit (blood only) 33.1 % (34.1-44.9); Hemoglobin 10.9 g/dl (12.0-16.0); Immature Granulocytes # (auto) 0.03 K/uL (0.00-0.02); Immature Granulocytes % (auto) 0.3 %; Lymphocytes # (auto) 0.96 K/uL (1.2-3.4); Lymphocytes % (auto) 8.1 %; Mean Corpuscular Hemoglobin 33.2 pg (25.0-34.0); Mean Corpuscular Hgb Conc 32.9 g/dL (32.0-36.0); Mean Corpuscular Volume 100.9 fL (80.0-100.0); Mean Platelet Volume 11.2 fL (9.4-12.3); Monocytes # (auto) 0.92 K/uL (0.24-0.82); Monocytes % (auto) 7.7 %; Neutrophils # (auto) 9.96 K/uL (1.4-6.5); Neutrophils % (auto) 83.6 %; Platelet Count 183 K/uL (130-400); RDW Coefficient of Variation 12.2 % (11.5-14.5); RDW Standard Deviation 45.7 fL (36.4-46.3); Red Blood Count 3.28 M/uL (3.93-5.22)
[2021-11-27] MEDS: DOCUSATE SODIUM 100 MG CAP PO SCH (08:29)
[2021-11-27 08:42] LABS: BUN Creatinine Ratio 21.1 (10-20); Calcium 8.7 mg/dl (8.5-10.1); Creatinine Clr Calc Pharmacy 64.1 ml/min; Est GFR (African American) 70.3 ml/min; Est GFR (Non-African American) 60.7 ml/min; Potassium 4.1 mmol/L (3.5-5.1)
[2021-11-27] MEDS ORDERED: PANTOprazole 40 MG TAB PO SCH (09:00)
[2021-11-27] MEDS ORDERED: MULTIVITAMIN TAB PO SCH (09:00)
[2021-11-27] MEDS ORDERED: ASPIRIN 81 MG ECTAB PO SCH (09:00)
[2021-11-27] MEDS ORDERED: FLUTICASONE/VILANTEROL 100/25MCG 14 PUFFS/INHALER INH SCH (09:00)
--- NOTE | 2021-11-27 10:04 | Orthopedic Progress Note ---
Date of Service November 27, 2021 Assessment & Plan (1) Primary osteoarthritis, left shoulder: Plan: Postop day #1 left total shoulder arthroplasty -PT/OT per protocol -Pain management as written -DVT prophylaxis: SCDs, teds, aspirin 81 mg twice daily -AM labs: Mild leukocytosis likely reactive due to surgical stress. Hemoglobin stable at 10.9. -Discharge planning: Plan on discharge home later today. Admission and Anticipated Discharge Date Admission Date: November 26, 2021 Subjective Patient is postop day 1 left total shoulder. She is doing well this morning. Has minimal pain. No other complaints. Denies chest pain, shortness of breath, headache/dizziness, nausea/vomiting/diarrhea. Review of Systems Review of Systems: All systems reviewed & are unremarkable except as noted in Subjective Physical Exam 2 Physical Exam: Left shoulder: Dressings are clean, dry, intact. Hemovac in place. Sling in place. Fingers are mobile with good artists' booking representative strength. Good wrist extension. Neurovascular status grossly intact. Still some numbness into her fingers likely residual from the block. Constitutional: WD/WN, vitals as above Results & Data ([facility]) Vital Signs (Past 12 Hours) Vital Signs Temp Pulse Resp BP Pulse Ox O2 Del Method 11/27/21 07:36 36.4 C L 54 L 16 113/58 L 92 Room Air 11/27/21 03:42 36.7 C 78 18 106/66 93 Room Air 11/26/21 22:14 36.7 C 103 H 20 160/91 H 94 Room Air
[2021-11-27 10:47] LABS: Folate (Folic Acid) > 22.30 ng/ml (>5.38)
[2021-11-27 10:48] LABS: Vitamin B12 386 pg/ml (180-914)
[2021-11-27] MEDS ORDERED: CYANOCOBALAMIN 1000 MCG/ML VIAL IM SCH (11:15)
--- NOTE | 2021-11-27 11:56 | Communication Note ---
Date of Service: November 27, 2021 Stopped by to let patient know I checked a b12/folate level and ordered replacement for borderline low B12. IM x 1 inpatient and to continue PO at disch arge. Stated feeling well, no pain presently. Improvement in numbness to thumb/index finger and almost resolved in middle finger. No fevr/chill, chest pain, shortness of breath, abdominal pain nausea or vomiting. She inquired about pain control at discharge -- instructed would encourage 1000mg Tylenol q8h for baseline and to use PO pain medication for breakthrough. She is wondering about having rx for Dilaudid. I stated I didn't think that was appropriate next step given no pain currently however she is worried about pain when the nerve block wears off. Messaged orthopedics -- dispo/pain medications per primary. Please call with any questions/concerns.
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
== END 2021-11-27 14:51 | disposition home or self-care (01) | DRG 483 ==
LOC: ASU 10:11 → INTOOBSV 18:44 → 3W 18:44